=== PATIENT | male | born 1960 | race Caucasian/White ===

== ENCOUNTER 2019-06-29 13:58 | Inpatient (IN) | payer MEDICAID ==
--- NOTE | 2019-06-29 14:01 | ED Physician Documentation ---
PD HPI FOCAL NEURO - Stated complaint Stated Complaint: POSS STROKE - History obtained from History obtained from: Patient - History of Present Illness Timing - onset: How many hours ago (He works as a lead painter and reportedly his brother who works with him noted him to have a facial droopiness and drooling from the left side of his face onset while at work. It was just within the last hour or so. The patient states he felt okay this morning. He did not notice any weakness in his arm or legs. There is no report from his brother of confusion or such.), Today Timing - duration: Hours (1) Timing - details: Abrupt onset Weakness: Face, Left. No: Arm, Leg Numbness: No: Face, Arm, Leg Associated symptoms: No: Headache, Nausea / vomiting, Fall, Head injury Contributing factors: negative: Anticoagulated Baseline status: positive: A&OX3, ambulatory, indep Similar symptoms before: Has not had sx before Review of Systems Constitutional: denies: Fever, Chills Nose: denies: Rhinorrhea / runny nose, Congestion Throat: denies: Sore throat Cardiac: denies: Chest pain / pressure Respiratory: denies: Cough GI: denies: Abdominal Pain, Nausea, Vomiting Neurologic: reports: Focal weakness (just left face). denies: Generalized weakness, Numbness, Near syncope, Confused PD PAST MEDICAL HISTORY - Past Medical History Cardiovascular: None Respiratory: None Neuro: None Endocrine/Autoimmune: None - Allergies Allergies/Adverse Reactions: Allergies Allergy/AdvReac Type Severity Reaction Status Date / Time No Known Drug Allergies Allergy Verified 06/29/19 14:24 PD ED PE NORMAL - Vitals Vital signs reviewed: Yes - General General: Alert and oriented X 3, No acute distress (Seems to have deviated gaze to the right but is able to look full range of motion when following my finger. He denies any visual loss. He is able to answer questions appropriately and appears comfortable. There is a mild left facial droopiness noted on the corner of the mouth. I do not notice that around the eye nor the forehead at this time.), Well developed/nourished - HEENT HEENT: Pharynx benign - Neck Neck: Supple, no meningeal sign, No adenopathy, No bruit - Cardiac Cardiac: RRR, No murmur - Respiratory Respiratory: Clear bilaterally - Derm Derm: Normal color, Warm and dry - Extremities Extremities: No tenderness to palpate, Normal ROM s pain, No calf tenderness / cord, Other (1+ edema in both legs) - Neuro Neuro: Alert and oriented X 3, No sensory deficit, Normal speech Eye Opening: Spontaneous Motor: Obeys Commands Verbal: Oriented GCS Score: 15 - Psych Psych: No: Normal affect (somewhat flat) NIHSS - Level of Consciousness Level of consciousness: (0) Alert, Keenly responsive LOC Questions: (0) Answers both Q's correct LOC Commands: (0) Performs both correctly - Gaze Best Gaze: (0) Normal - Visual Visual: (0) No loss - Facial Palsy Facial Palsy: (1) Minor paralysis (left face mild droop) - Motor Arms (both separate) Motor Arm (right): (0) No drift Motor Arm (left): (0) No drift - Motor Legs (both separate) Motor Leg (right): (0) No drift Motor Leg (left): (0) No drift - Limb Ataxia Limb Ataxia: (0) Absent - Sensory Sensory: (0) Normal - Best Language Best Language: (0) No aphasia - Dysarthria Dysarthria: (0) Normal - Extinction and Inattention (formally neg Extinction and inattention: (1) Visual,tactile,auditory,spatial, or personal inattention (rested gaze to the right; but can look past midline to left) - Total Score/Results Total Score/Result: 2 Results - Vitals Vitals: Vital Signs - 24 hr 06/29/19 06/29/19 06/29/19 14:14 14:49 15:00 Temperature 36.8 C Heart Rate 92 92 85 Respiratory 16 18 26 H Rate Blood Pressure 183/91 H 166/74 H 175/80 H O2 Saturation 98 93 93 06/29/19 06/29/19 15:33 16:03 Temperature 36.9 C Heart Rate 90 88 Respiratory 14 16 Rate Blood Pressure 157/87 H 167/78 H O2 Saturation 98 93 Oxygen O2 Source Room air - Labs Labs: Laboratory Tests 06/29/19 06/29/19 06/29/19 14:10 14:10 14:10 WBC 8.3 RBC 5.05 Hgb 15.9 Hct 49.2 MCV 97.4 H MCH 31.5 H MCHC 32.3 RDW 14.7 Plt Count 180 MPV 9.9 Neut # (Auto) 5.7 Lymph # (Auto) 1.7 Morgan # (Auto) 0.7 Eos # (Auto) 0.1 Baso # (Auto) 0.1 Absolute Nucleated RBC 0.00 Nucleated RBC % 0.0 PT INR APTT Sodium 133 L Potassium 4.4 Chloride 96 L Carbon Dioxide 27 Anion Gap 10.0 BUN 18 Creatinine 1.0 Estimated GFR (MDRD) 77 L Glucose 233 H POC Whole Bld Glucose Calcium 9.1 Total Bilirubin 1.1 H AST 31 ALT 28 Alkaline Phosphatase 106 Total Protein 8.5 H Albumin 3.9 Globulin 4.6 H Albumin/Globulin Ratio 0.8 L Lipase 28 Ethyl Alcohol < 5.0 06/29/19 06/29/19 14:19 14:57 WBC RBC Hgb Hct MCV MCH MCHC RDW Plt Count MPV Neut # (Auto) Lymph # (Auto) Morgan # (Auto) Eos # (Auto) Baso # (Auto) Absolute Nucleated RBC Nucleated RBC % PT 12.2 INR 1.1 APTT 29.4 Sodium Potassium Chloride Carbon Dioxide Anion Gap BUN Creatinine Estimated GFR (MDRD) Glucose POC Whole Bld Glucose 217 H Calcium Total Bilirubin AST ALT Alkaline Phosphatase Total Protein Albumin Globulin Albumin/Globulin Ratio Lipase Ethyl Alcohol - Rads (name of study) head CT Radiology: Prelim report reviewed, Discussed with rads (No acute findings), See rad report neck and head angio Radiology: Prelim report reviewed (Occlusion at the right internal carotid with revascularization distally.), Discussed with rads (I talked with [place] stroke neurology who consulted with the interventional neurovascular specialist and reviewed the imaging. They are feeling was this was a chronic occlusion with collateral flow and did not meet acute intervention. Their concern would still be small distal occlusion and so stroke evaluation is still warranted but no acute lytic or endovascular intervention.), See rad report PD MEDICAL DECISION MAKING - ED course Complexity details: considered differential (Just facial droop without apparent forehead or mabel-orbital involvement. No arm or leg weakness. Does not sound hemispheric per se but concern for small vessel occlusion. I cannot clinically say looks like Elizabeth's palsy at this point in the timing onset seems more acute. We will treated as possible stroke with work-up that way.), d/w patient, d/w financial management consultant (Talked with stroke neurology who felt the patient did not warrant lytic intervention based on his degree of symptoms as the benefit would not substantiate potential harm or risk of harm. 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 This would not be approached surgically after he consulted with some of the interventional personnel. He suggested evaluation for small vessel injury related to breakoff from the chronic occlusion. Also started him on aspirin and statin therapy.) Departure - Departure Disposition: 66 [facility] DC/Xfer Clinical Impression: Facial droop CVA (cerebral vascular accident) Qualifiers: CVA mechanism: other Qualified Code(s): I63.89 - Other cerebral infarction Condition: Stable Record reviewed to determine appropriate education?: Yes
[2019-06-29 14:20] LABS: BASOPHILS # (AUTO) 0.1 10^3/uL (0.0-0.1); BASOPHILS % (AUTO) 0.8 %; EOSINOPHILS # (AUTO) 0.1 10^3/uL (0.0-0.7); EOSINOPHILS % (AUTO) 1.7 %; HGB - HEMOGLOBIN 15.9 g/dL (14.0-18.0); LYMPHOCYTES # (AUTO) 1.7 10^3/uL (1.5-3.5); LYMPHOCYTES % (AUTO) 19.8 %; MEAN CORPUSCULAR HEMOGLOBIN 31.5 pg (27.0-31.0); MEAN CORPUSCULAR HGB CONC 32.3 g/dL (32.0-36.0); MEAN CORPUSCULAR VOLUME 97.4 fL (80.0-94.0); MEAN PLATELET VOLUME 9.9 fL (7.4-11.4); MONOCYTES # (AUTO) 0.7 10^3/uL (0.0-1.0); MONOCYTES % (AUTO) 8.9 %; NEUTROPHILS # (AUTO) 5.7 10^3/uL (1.5-6.6); NEUTROPHILS % (AUTO) 68.3 %; PLT - PLATELET COUNT 180 10^3/uL (130-450); RED BLOOD COUNT 5.05 10^6/uL (4.70-6.10); RED CELL DISTRIBUTION WIDTH 14.7 % (12.0-15.0); WHITE BLOOD COUNT 8.3 x10^3/uL (4.8-10.8)
--- NOTE | 2019-06-29 14:23 | CT Report ---
Reason: Stroke Procedure Date: 06/29/2019 Accession Number: [id number] / [id number] Procedure: CT - HEAD WO CPT Code: Final Report FULL RESULT: EXAM: CT HEAD EXAM DATE: 06/29/2019 02:07 PM. CLINICAL HISTORY: Left facial droop, right gaze, concern for infarct. COMPARISON: None. TECHNIQUE: Multiaxial CT images were obtained from the foramen magnum to the vertex. Reformats: Sagittal and coronal. IV contrast: None. In accordance with CT protocol optimization, one or more of the following dose reduction techniques were utilized for this exam: automated exposure control, adjustment of mA and/or KV based on patient size, or use of iterative reconstructive technique. FINDINGS: Parenchyma: No intraparenchymal hemorrhage. No evidence of mass, midline shift, or CT findings of infarction. Ingram-white differentiation is distinct. Extraaxial Spaces: Normal for age. No subdural or epidural collections identified. Ventricles: Normal in size and position. Sinuses and Orbits: Imaged paranasal sinuses, orbits, and mastoids show no significant abnormality. Bones: No evidence of fracture or calvarial defect. Other: None. IMPRESSION: Head CT within normal limits for age. No acute intracranial hemorrhage or clear CT evidence for infarct at this time. Brain MRI for increased sensitivity could be considered. [facility] The critical test notification system was initiated by Dr. Temi Mcfarland at 02:16 PM on 06/29/2019. The above critical test findings were discussed with Lopez Cornejo by Dr. Temi Mcfarland at 02:21 PM on 06/29/2019.
[2019-06-29] MEDS ORDERED: SODIUM CHLORIDE 0.9% 1,000 ML IV ONE (14:24)
[2019-06-29] MEDS ORDERED: IOVERSOL 320 100 ML VIAL IVP ONE ×2 (14:27→14:51)
[2019-06-29 14:33] LABS: ALBUMIN 3.9 g/dL (3.2-5.5); ALBUMIN/GLOBULIN RATIO 0.8 (1.0-2.2); BILIRUBIN,TOTAL 1.1 mg/dL (0.2-1.0); CALCIUM 9.1 mg/dL (8.5-10.3); TOTAL PROTEIN 8.5 g/dL (6.7-8.2)
[2019-06-29] MEDS ORDERED: ATORVASTATIN 10 MG TABLET PO STA (15:02)
[2019-06-29] MEDS ORDERED: ASPIRIN CHEW 81 MG TABLET PO STA (15:02)
[2019-06-29 15:09] LABS: INR 1.1 (0.8-1.2); PT - PROTHROMBIN TIME 12.2 secs (9.9-12.6)
[2019-06-29 15:16] LABS: PARTIAL THROMBOPLASTIN TIME 29.4 secs (24.9-33.3)
--- NOTE | 2019-06-29 15:30 | CT Report ---
Reason: L sided facial droop, L neck pain Procedure Date: 06/29/2019 Accession Number: [id number] / [id number] Procedure: CT - ANGIO NECK W CPT Code: Final Report FULL RESULT: CT ANGIOGRAM NECK INDICATION: 58-year-old male. Left facial droop. Left neck pain. TECHNIQUE: 80 cc of Optiray 320 contrast were injected at a rapid rate through a large bore, right antecubital intravenous catheter. The neck was scanned helically during arterial phase. The data was reconstructed into 0.5 mm axial images. In addition, MIP reconstructions have been generated in multiple projections to allow better assessment of the extracranial carotid and vertebral arteries. Significant arterial stenoses will be assessed using NASCET type measurements when possible. In accordance with CT protocol optimization, one or more of the following dose reduction techniques were utilized for this exam: automated exposure control, adjustment of mA and/or KV based on patient size, or use of iterative reconstructive technique. COMPARISON: None. FINDINGS: There is normal branching of the aortic arch. There is calcified plaque at the origin of the left subclavian artery without significant associated stenosis. The first order, supra-aortic arteries appear widely patent. Right carotid artery: There is extensive beam-hardening artifact from dense contrast in the right subclavian vein that partially obscures the proximal common carotid artery. The mid to distal common carotid artery is patent. There is partially calcified plaque at the carotid bifurcation. There is little intraluminal contrast in the carotid bulb. There is absence of intraluminal contrast at the junction between the distal bulb and the proximal cervical ICA, extending over a distance of roughly 5 mm in the craniocaudad plane. However, there is a small amount of intraluminal contrast more distally in the ICA, to at least the distal cervical segments (see images 79 through 82 of series #5). There is no apparent intraluminal contrast in the ascending or horizontal petrous segments of the right ICA. A small amount of intraluminal contrast is seen in small caliber lumen for the cavernous segments, however, this is probably filling in a retrograde fashion. Left carotid artery: There is partially calcified plaque at the carotid bifurcation, extending into the carotid bulb. There is associated narrowing in the carotid bulb. At the level of maximal narrowing the lumen appears to be reduced to about 3 mm AP, compared to about 4.5 mm more distally. This is consistent with a 33.3% NASCET type stenosis. The extra cranial ICA is otherwise unremarkable. There is calcified plaque at the origin for the external carotid artery without associated, hemodynamically significant stenosis. Right vertebral artery: Patent at origin. A short segment of the proximal V1 segment is partially obscured due to beam-hardening artifact from dense contrast in adjacent structure. The mid and distal V1 segment are patent. However, the distal V1 and the proximal V2 segment are significantly smaller than the distal V2 segment. For example at the C5 level the lumen measures about 2.7 mm transverse, compared to about 4.7 mm at the C3-C4 level. The distal V2 and the V3 segments are robust. The etiology of the narrowing in the distal V1 and the proximal V2 segments is uncertain. There is some calcified plaque (for example see image 210 of series #2). No obvious intimal flap is demonstrated to suggest recent dissection. 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 There are appropriately small left-sided transverse foramina. The origin/proximal V1 segment are not well seen (see image 116 of series #5) this may be technical, however, the possibility of hemodynamically significant narrowing cannot be excluded. The V1 and V2 junction is poorly assessed, probably due to artifact. The V2 segment is otherwise relatively well seen and appears patent. The V3 segment is patent. IMPRESSION: 1. There is disease in the extracranial right ICA. There is little intraluminal contrast within the bulb. In addition, there is absence of intraluminal contrast extending over a 5 mm distance at the junction between the distal bulb and the proximal cervical ICA. However, there is a small amount of contrast in the lumen, more distally, extending to the junction between the distal cervical ICA and the ascending petrous segment. No intraluminal contrast is seen in the ascending or horizontal petrous segments. These findings make it difficult to differentiate between complete occlusion or high-grade, preocclusive stenosis. This could be further assessed with catheter angiography as clinically warranted. 2. Intracranially there is reconstitution of the right ICA through collaterals. There is filling of a small caliber, cavernous segment of the right ICA. It probably fills in a retrograde fashion. This would argue for complete occlusion of the right ICA, in the petrous segments rather than high-grade, preocclusive stenosis. 2. There is roughly 33.3% NASCET type narrowing in the left carotid bulb from atherosclerotic disease. 3. The dominant right vertebral artery is patent at its origin. Portions of the V1 segment are obscured due to beam-hardening artifact from dense contrast in adjacent venous structures. Noted is long segment, narrowing in the distal V1/proximal V2 segment of the right vertebral artery. The distal V2 and the V3 segment are robust (roughly 4.7 mm diameter). The etiology of this long segment narrowing is uncertain. Differential diagnostic considerations would include dissection or scarring from prior dissection. 4. The left vertebral artery is hypoplastic. Nonvisualization of the origin/proximal V1 segment may be technical, however, the possibility of hemodynamically significant stenosis cannot be excluded. The call report notification system was initiated by Dr. Cornelius Mas at 03:23 PM on 06/29/2019. The above call report findings were discussed with Dr.John Chawla by Dr. Cornelius Mas at 03:28 PM on 06/29/2019.
--- NOTE | 2019-06-29 15:38 | CT Report ---
Reason: L sided facial droop Procedure Date: 06/29/2019 Accession Number: [id number] / [id number] Procedure: CT - ANGIO HEAD W/WO CPT Code: Final Report FULL RESULT: EXAM: CT ANGIOGRAM HEAD AND POSTCONTRAST HEAD CT. INDICATION: 58-year-old male. Left facial droop. Left neck pain. TECHNIQUE: CT angiogram head. 80 cc of Optiray 320 contrast were injected at a rapid rate through a large bore, antecubital intravenous catheter. The head was scanned helically during arterial phase. The data was reconstructed into 0.5 mm axial images. In addition, MIP reconstructions have been generated in multiple projections to allow better assessment of the intracranial arteries. Postcontrast head CT Sequential 5 mm axial images were obtained through the brain, following the CT angiogram. COMPARISON: None. FINDINGS: CT angiogram head Anterior circulation: There is absence of intraluminal contrast in the petrous segments of the right ICA, suggesting occlusion. There is intraluminal contrast in the right carotid siphon, confirming reconstitution of the intracranial ICA through collaterals. An anterior communicating artery is demonstrated. However, the A1 segment of the right anterior cerebral artery is hypoplastic. There is a large, right posterior communicating artery, likely source of the main collateral supply to the right ICA. The supraclinoid right ICA appears widely patent throughout. There is a small amount of contrast in small caliber lumen for the anterior genuine of the right carotid siphon and the cavernous ICA. They almost certainly fill in a retrograde fashion. The M1 segment of the right MCA is widely patent. In addition, there appears to be good filling of the M2 branches without obvious occlusion or hemodynamically significant narrowing. The left ICA is widely patent throughout. There is a dominant left A1 segment. An anterior communicating artery is demonstrated. There appears to be good filling of the A2 and distal ELYSIA branches bilaterally. There is no obvious ELYSIA branch occlusion. The left MCA is unremarkable. No aneurysm is demonstrated and there is no obvious occlusion or hemodynamically significant stenosis affecting the M1 or M2 branches. Posterior circulation: The right vertebral artery is widely patent. There is good filling of the right PICA. The left vertebral artery is hypoplastic but patent. There is filling of a small caliber left PICA. No aneurysm is seen at either PICA origin. The basilar artery, the superior cerebellar arteries and the main branches of the posterior cerebral arteries appear widely patent. There are patent posterior communicating arteries bilaterally. No aneurysms are identified arising from the basilar artery trunk or apex. Postcontrast head CT No enhancing space-occupying mass lesion is demonstrated. There appears to be normal intravascular contrast enhancement in the dural venous sinuses and deep venous structures. IMPRESSION: CT angiogram head 1. Absence of intraluminal contrast in the petrous segment of the right ICA probably relates to occlusion, rather than slow flow secondary to high-grade stenosis. 2. There is reconstitution of the intracranial right ICA by means of intracranial collaterals (see above). 3. The A1 segment of the right anterior cerebral artery is hypoplastic. However, there is a robust left A1 segment. An anterior communicating artery is demonstrated. There appears to be good filling of the A2 and distal ELYSIA branches bilaterally. 4. Main branches of the right MCA appear widely patent without obvious pathology in any of the 3, M2 branches at the trifurcation. 5. No significant pathology is identified affecting main arteries in the left ICA circulation or the vertebrobasilar circulation. Postcontrast head CT No enhancing space-occupying mass lesion is demonstrated. A preliminary report for this examination was called to Dr. Christopher Chawla, following preliminary assessment on 06/29/2019 at 1525 hours.
[2019-06-29] MEDS ORDERED: SODIUM CHLORIDE FLUSH 0.9% 10 ML SYRINGE IVP PRN (16:26)
[2019-06-29] MEDS ORDERED: ONDANSETRON 4 MG/2 ML VIAL IVP PRN (16:26)
[2019-06-29] MEDS ORDERED: ZOLPIDEM 5 MG TABLET PO PRN (16:26)
[2019-06-29] MEDS ORDERED: ACETAMINOPHEN 325 MG TABLET PO PRN (16:26)
[2019-06-29] MEDS ORDERED: hydrALAZINE INJ 20 MG/ML VIAL IVP PRN ×2 (16:42→21:11)
--- NOTE | 2019-06-29 16:50 | HISTORY & PHYSICAL EXAMINATION ---
Chief Complaint - Chief Complaint Chief Complaint: left side facial drooping History of Present Illness - Admitted From Admitted From:: ER - History of Present Illness HPI Comment/Other: This is a 58-yrs old male without significant medical history, present ER complain of left facial drooping. pt brought in by his brother for concerns of a stroke. pt works as a commercial painter. His brother who works with him noted pt to have a left facial droopiness and drooling from the left side of his face while they were at work. It happened around 1345. The patient report he felt fine at this morning. He report he did not notice any weakness in his bilateral arm or legs. pt denies vision change, eye pain, headache, neck pain. He denies fever, chill, chest pain, shortness of breathing. ER provider did CT of head and CTA of head and neck. CT of head was unremarkable. 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 The dominant right vertebral artery is patent at its origin, but the distal V2 and V3 segment narrowing is uncertain. differential diagnostic considerations would include dissection or scarring from prior dissection. ER provider did consult with neurologist. The neurologist felt patient did not warrant lytic intervention based on his degree of symptoms as the benefit would not substantiate potential harm or risk of harm. Also that would not be surgically approached after the neurologist consulted with some of the intervention personnel.The neurologist suggested evaluation for small vessel injury related to break off from the chronic occlusion. The neurologist also recommended pt can be started on aspirin and statin therapy. pt is admitted at medical floor for further evaluation and treatment. History - Past Medical History Cardiovascular: reports: None Respiratory: reports: None Neuro: reports: None Endocrine/Autoimmune: reports: None Meds/Allgy - Allergies Allergies/Adverse Reactions: Allergies Allergy/AdvReac Type Severity Reaction Status Date / Time No Known Drug Allergies Allergy Verified 06/29/19 14:24 Exam - Vital Signs Vital Signs: Vital Signs x48h Temp Pulse Resp BP Pulse Ox 06/29/19 16:03 36.9 C 88 16 167/78 H 93 06/29/19 15:33 90 14 157/87 H 98 06/29/19 15:00 85 26 H 175/80 H 93 06/29/19 14:49 92 18 166/74 H 93 06/29/19 14:14 36.8 C 92 16 183/91 H 98 Conclusion/Plan - Problem List (1) CVA (cerebral vascular accident) Conclusion/Plan: pt present left facial drooping without unilateral extremities weakness or other focal neurological deficit. pt report his speech as his baseline. CT of head was unremarkable. 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 The dominant right vertebral artery is patent at its origin, but the distal V2 and V3 segment narrowing is uncertain. differential diagnostic considerations would include dissection or scarring from prior dissection. pt denies neck pain or headache. clinically pt showe left facial drooping without other focal neurological deficits. neurologist was consulted for above finding, recommend pt would be treated with small vessel injury related to break off from the chronic occlusion and start on Aspirin and statin therapy. differential diagnosis could be castillo palsy. order MRI of brain and ECHO, lipid panel ER already started Aspirin, continue aspirin and statin per neurologist's recommendation start on PT/OT Qualifiers: CVA mechanism: other Qualified Code(s): I63.89 - Other cerebral infarction (2) Facial droop Conclusion/Plan: pt's left facial drooping is almost resolved when I examine pt. pt did have left eyebrow sagging but pt has no difficult to close his left eye. pt does not present other focal neurological deficit. ER provider consult with neurologist, recommend pt for inpt, and evaluation for small vessel injury related to break off from the chronic occlusion. The differential diagnosis could be castillo palsy. pt denies vision change, eye pain, headache, neck pain order MRI of brain per recommendation, ER started on Aspirin, order statin, lipid panel test, PT/OT evaluation. (3) HTN (hypertension) Conclusion/Plan: pt has no medical hx. now pt was found to have HTN. start hydralazine PRN . continue vital monitor (4) Hyperglycemia Conclusion/Plan: pt has glucose at 233, pt denies hx of diabetes. pt has risk of obesity. will check A1C. If A1C is above 6.7, it is likely pt has new diagnosis of DM2, then we would start on insulin therapy, d/c home with Metformin first, and followup his PCP for further management. (5) Hyponatremia Conclusion/Plan: Na is 133, slight lower than normal, it is likely form hypovelmic hyponatremia start on IVF of NS, lab monitor (6) Current smoker Conclusion/Plan: pt report he smoke cigarette daily one pack per day. advise pt quit smoking. he ask Nicotine Patch (7) Wheezing Conclusion/Plan: pt present bilateral wheezing but he denies fever, chill or shortness of breath. pt's WBC is normal. pt denies hx of asthma or COPD. but pt is a current cigarette smoker. order CXR, start albuterol and duoneb. depending on CXR, pt might need Covid 19 test or pt might need start on lower dosage of steroid. (8) Obese Conclusion/Plan: pt's BMI is 40.2, advise pt loss of his weight, he understood. - Lab Results Fish Bones: 06/29/19 14:10 06/29/19 14:10 Core Measures - Anticipated LOS I expect patient to be DC'd or transferred within 96 hours.: Yes - DVT/VTE - Prophylaxis VTE/DVT Device ordered at admit?: Yes VTE/DVT Prophylaxis med ordered at admit?: Yes
[2019-06-29 17:15] LABS: HB2 TOTAL 16.5 g/dL; HEMOGLOBIN A1C 0.96 g/dL; HEMOGLOBIN A1C % 7.5 % (4.6-6.2)
[2019-06-29] MEDS ORDERED: IPRATROPIUM/ALBUTEROL 3 ML NEB INH STA (18:17)
[2019-06-29] MEDS ORDERED: IPRATROPIUM/ALBUTEROL 3 ML NEB INH PRN (18:17)
[2019-06-29] MEDS ORDERED: ALBUTEROL NEB 2.5 MG/3 ML INH PRN (18:17)
[2019-06-29] MEDS ORDERED: ALBUTEROL NEB 2.5 MG/3 ML INH ONE (18:17)
[2019-06-29] MEDS: SODIUM CHLORIDE 0.9% 1,000 ML IV SCH (19:06)
[2019-06-29] MEDS: SODIUM CHLORIDE FLUSH 0.9% 10 ML SYRINGE IVP SCH (19:08)
[2019-06-29] MEDS: NICOTINE 21 MG PATCH TOP SCH (19:08)
--- NOTE | 2019-06-29 19:08 | MRI Report ---
Reason: stroke Procedure Date: 06/29/2019 Accession Number: [id number] / [id number] Procedure: MRI - Brain W/O CPT Code: Final Report FULL RESULT: EXAM: MRI BRAIN WITHOUT CONTRAST EXAM DATE: 06/29/2019 05:56 PM. CLINICAL HISTORY: Clinically suspected acute stroke. Left facial droop and drooling. COMPARISON: No prior brain MRI. TECHNIQUE: Multiplanar, multisequence T1-weighted and fluid-sensitive MR sequences of the brain were performed. Sequences optimized for routine evaluation. Other: None. IV Contrast: None. FINDINGS: Brain Volume: Normal for age. Parenchyma/Dura: Rounded region of right frontal lobe restricted diffusion with minimal edema consistent with acute ischemic infarct measuring about 3 x 3.5 cm. No associated hemorrhage. 7 mm T2 hyperintensity with mild diffusion hyperintensity but no diffusion restriction in the right occipital deep white matter likely representing subacute to late subacute post ischemic signal abnormality. 8 mm focus of peripheral probable restricted diffusion in the right posterior parietal lobe with mild edema consistent with acute to subacute ischemic infarct. No significant mass effect. No midline shift. No acute hemorrhage. Mild multifocal nonspecific chronic appearing white matter T2 hyperintense signal changes, likely attributable to aging and mild chronic microangiopathy. Ventricles/Cisterns: No hydrocephalus. No abnormal extra-axial fluid collection or hemorrhage. Orbits: Symmetric and unremarkable. Sella Turcica: The pituitary gland, cavernous sinuses, suprasellar cistern and optic chiasm are unremarkable. IAC: Grossly symmetric and unremarkable allowing for the inherent limitations of noncontrast imaging technique. Vasculature: Abnormal. The right ICA skull base flow void is absent suggestive of arterial occlusion. Sinuses: Multifocal paranasal sinus mucosal thickening, especially of sphenoid and ethmoid. Bones: No focal pathologic appearing marrow signal changes. Other: None. IMPRESSION: 1. Diffusion abnormalities on the right consistent with multiple infarcts, potentially of different ages, the largest involves the right frontal lobe without associated hemorrhage. 2. Mild chronic generalized age-related changes. 3. Probable occlusion of the right ICA at the skull base. 4. Multifocal paranasal sinus mucosal thickening. RADIA The call report notification system was initiated by Dr. Edvin Osuna at 07:01 PM on 06/29/2019. The above call report findings were discussed with [place] by Dr. Edvin Osuna at 07:04 PM on 06/29/2019.
[2019-06-29 20:15] LABS: MUDS CUTOFF CONCENTRATIONS CUTOFF CONC BELOW:
[2019-06-29 20:26] LABS: AMPHETAMINE SCREEN,URINE NEGATIVE (NEGATIVE); BENZODIAZEPINES SCREEN, URINE NEGATIVE (NEGATIVE); COCAINE SCREEN URINE NEGATIVE (NEGATIVE); METHADONE SCREEN, URINE NEGATIVE (NEGATIVE); METHAMPHETAMINES SCREEN, URINE NEGATIVE (NEGATIVE); OPIATE SCREEN, URINE NEGATIVE (NEGATIVE); OXYCODONE SCREEN, URINE NEGATIVE (NEGATIVE); PROPOXYPHENE SCREEN, URINE NEGATIVE (NEGATIVE); TRICYCLIC ANTIDEPRESSANT,URINE NEGATIVE (NEGATIVE)
[2019-06-29] MEDS ORDERED: ATORVASTATIN 40 MG TABLET PO SCH (21:00)
--- NOTE | 2019-06-29 21:15 | XRAY Report ---
Reason: SOB Procedure Date: 06/29/2019 Accession Number: [id number] / [id number] Procedure: XR - Chest 1 View X-Ray CPT Code: 25707 Final Report FULL RESULT: EXAM: CHEST RADIOGRAPHY EXAM DATE: 06/29/2019 06:43 PM. CLINICAL HISTORY: SOB. COMPARISON: None. TECHNIQUE: 1 view. FINDINGS: Lungs/Pleura: No dense consolidation. No large effusion or pneumothorax. No pulmonary edema. Mediastinum: Heart and mediastinal contours are unremarkable. Other: None. IMPRESSION: No acute radiographic pulmonary abnormalities. RADIA
[2019-06-29] MEDS: INSULIN ASPART 300 UNIT/3 ML PEN SUBQ SCH (22:21)
[2019-06-29] MEDS: FAMOTIDINE 20 MG TABLET PO SCH (22:21)
[2019-06-30] MEDS ORDERED: BENZOCAINE/MENTHOL LOZENGE MM PRN (00:20)
[2019-06-30] MEDS: SODIUM CHLORIDE FLUSH 0.9% 10 ML SYRINGE IVP SCH ×2 (00:38→08:29)
[2019-06-30 05:10] LABS: BASOPHILS % (AUTO) 0.4 %; EOSINOPHILS # (AUTO) 0.2 10^3/uL (0.0-0.7); EOSINOPHILS % (AUTO) 2.4 %; HGB - HEMOGLOBIN 14.3 g/dL (14.0-18.0); LYMPHOCYTES # (AUTO) 1.8 10^3/uL (1.5-3.5); LYMPHOCYTES % (AUTO) 23.7 %; MEAN CORPUSCULAR HEMOGLOBIN 31.2 pg (27.0-31.0); MEAN CORPUSCULAR VOLUME 97.6 fL (80.0-94.0); MEAN PLATELET VOLUME 10.1 fL (7.4-11.4); MONOCYTES # (AUTO) 0.7 10^3/uL (0.0-1.0); MONOCYTES % (AUTO) 8.7 %; NEUTROPHILS # (AUTO) 4.9 10^3/uL (1.5-6.6); NEUTROPHILS % (AUTO) 64.5 %; PLT - PLATELET COUNT 154 10^3/uL (130-450); RED BLOOD COUNT 4.58 10^6/uL (4.70-6.10); RED CELL DISTRIBUTION WIDTH 15.1 % (12.0-15.0); WHITE BLOOD COUNT 7.6 x10^3/uL (4.8-10.8)
[2019-06-30 05:24] LABS: ALBUMIN 3.3 g/dL (3.2-5.5); ALBUMIN/GLOBULIN RATIO 0.8 (1.0-2.2); ALKALINE PHOSPHATASE 70 IU/L (42-121); ALT ALANINE AMINOTRANSFERASE 26 IU/L (10-60); AST ASPARTATE AMINOTRANSFERASE 22 IU/L (10-42); BILIRUBIN,TOTAL 0.7 mg/dL (0.2-1.0); BUN - BLOOD UREA NITROGEN 16 mg/dL (6-20); CALCIUM 8.5 mg/dL (8.5-10.3); CARBON DIOXIDE - CO2 27 mmol/L (21-32); CHLORIDE 99 mmol/L (101-111); CHOL/HDL RATIO 2.6 (<5.0); CHOLESTEROL 143 mg/dL; CREATININE 0.6 mg/dL (0.6-1.2); GLUCOSE 168 mg/dL (70-100); HDL CHOLESTEROL 55 mg/dL; LDL CHOLESTEROL,CALCULATED 72 mg/dL; LDL/HDL RATIO 1.3 (<3.6); MAGNESIUM 1.8 mg/dL (1.7-2.8); SODIUM 135 mmol/L (135-145); TOTAL PROTEIN 7.4 g/dL (6.7-8.2); VLDL CHOLESTEROL 16 mg/dL
[2019-06-30] MEDS: SODIUM CHLORIDE 0.9% 1,000 ML IV SCH (07:05)
[2019-06-30] MEDS ORDERED: INSULIN GLARGINE 300 UNIT/3 ML PEN SUBQ SCH (08:00)
[2019-06-30] MEDS ORDERED: ASPIRIN 325 MG TABLET PO SCH (08:00)
[2019-06-30] MEDS: NICOTINE 21 MG PATCH TOP SCH (08:29)
[2019-06-30] MEDS: FAMOTIDINE 20 MG TABLET PO SCH (08:29)
[2019-06-30] MEDS: INSULIN ASPART 300 UNIT/3 ML PEN SUBQ SCH ×2 (08:44→12:12)
[2019-06-30] MEDS ORDERED: CLOPIDOGREL 75 MG TABLET PO SCH (09:00)
[2019-06-30] MEDS ORDERED: ENOXAPARIN 40 MG/0.4 ML SYRINGE SUBQ SCH (09:00)
[2019-06-30] MEDS ORDERED: amLODIPine 5 MG TABLET PO SCH (09:00)
[2019-06-30] MEDS ORDERED: ASPIRIN CHEW 81 MG TABLET PO SCH (09:00)
[2019-06-30] MEDS ORDERED: carvediloL 3.125 MG TABLET PO SCH (10:00)
[2019-06-30] MEDS ORDERED: PRENATAL VITAMIN TABLET PO SCH (10:00)
[2019-06-30] MEDS ORDERED: lisinopriL 5 MG TABLET PO SCH (10:00)
[2019-06-30] MEDS ORDERED: THIAMINE 100 MG TABLET PO SCH (10:00)
--- NOTE | 2019-06-30 11:55 | PHARMACY PROGRESS NOTE ---
- Best Possible Medication History Admit Date and Time: 06/29/19 1626 Processed by: Pharmacy Medication History completed: Yes Patient Interview: Pt interview ONLY source As the person ultimately responsible for medication therapy, providers are able to order a medication from an existing home medication list in [facility] via the "Reconcile Routine" prior to Confirmation of that medication by operations support manager. Such practice is discouraged except when the physician, in their clinical judgment, deems that a medical need exists for a medication without regard to previous use.
[2019-06-30] MEDS ORDERED: lisinopriL 20 MG TABLET PO SCH (12:00)
[2019-06-30] MEDS ORDERED: hydrALAZINE INJ 20 MG/ML VIAL IVP PRN (13:15)
--- NOTE | 2019-06-30 13:37 | Discharge Plan ---
Discharge Plan Problem Reviewed?: Yes Disposition: Home, Self Care Condition: Poor Prescriptions: Albuterol Sulf [Ventolin Hfa Inhaler] 1 - 2 puffs INH Q4HR PRN #1 inhaler PRN Reason: Shortness Of Air/Wheezing Aspirin [Octavio] 325 mg PO DAILYWM #15 tablet Atorvastatin [Lipitor] 80 mg PO QPM #30 tablet carvediloL [Coreg] 3.125 mg PO BID #30 tablet Lisinopril [Zestril] 20 mg PO DAILY #15 tablet metFORMIN [Glucophage] 500 mg PO BIDWM #30 tablet Vitamin [Trinatal Rx 1] 1 tab PO DAILYWM #15 tablet Thiamine [Vitamin B-1] 100 mg PO DAILY #15 tablet Diet: Diabetic Activity Restrictions: Activity as Tolerated Shower Restrictions: No (fall precaution) Instruction Topics: Atorvastatin tablets, Metformin tablets, Carvedilol tablets, Albuterol inhalation aerosol, Aspirin ASA chewable tablets, Lisinopril tablets, Hypertension Control, Heart Failure, Diabetes Resources, Diabetes Type 2 Coping, Stroke Sx, Stroke Taking Meds, COVID-19 [facility] Concerns: stroke, diabetes, diastolic heart failure, occlusion with reconstitution of carotid and scarring from prior dissection of vertebral artery. Plan of Treatment: you were found stroke, now you are stable without focal neurological deficits, meds Aspirin and Lipitor are prescribed for you. you were found to have new diabetes, meds Metformin is prescribed for pt. You were found to have diastolic heart failure and HTN, meds Lisinopril and Coreg are prescribed for pt. spinning room worker help you setup PCP. Advise you followup your PCP in one week, followup neurologist and vascular surgeon for your stroke, and chronic occlusion and possible prior dissection of Carotid and vertebral artery in 2-3 weeks. Care Goals: stabilization and improvement of your medical conditions Assessment: discussed with you about the care plan, you understood and will followup Additional Instructions or Follow Up instructions: You may followup your PCP in one week, followup neurologist and vascular surgeon in 2-3 weeks. Advise you quit cigarette smoking and alcohol. Should your symptoms return or worsen, you may present ER or call 911 for help. Follow-Up Care: [facility] - CHF Classes, Outpatient Rehab - PT, [facility] - Diabetes Ed No Smoking: If you smoke, Please STOP! Call for help.
--- NOTE | 2019-06-30 14:33 | DISCHARGE SUMMARY ---
Discharge Summary Admit Date: 06/29/19 Discharge Date: 06/30/19 Discharging Provider: Alex Hutton Condition at Discharge: Poor Discharge Disposition: 01 Home, Self Care Discharge Facility Name: home - DIAGNOSES Admission Diagnoses: (1) CVA (cerebral vascular accident) (2) Facial droop (3) HTN (hypertension) (4) Hyperglycemia (5) Hyponatremia (6) Current smoker (7) Wheezing (8) Obese Discharge Diagnoses with Status of Each Condition: (1) CVA (cerebral vascular accident) pt has no focal neurological deficits. pt is alert and oriented. pt had PT/OT evaluation and treatment. PT/OT recommended pt can be d/c. pt's MRI reveals pt has multiple infarcts in right brain. CTA of neck and brain reveals possible chronic occlusion on right carotid and prior dissection of right vertebrate artery. pt was consult by ER provider from neurologist and duct layer, and surgery is not approach at this time, and recommend to have Aspirin and State for his stroke. discussed all test results and care plan, d/c care plan with pt. pt state he understood and will followup. particleboard factory worker tried to help pt setting up for PCP. pt is prescribed Aspirin and Lipitor. pt is advised to followup PCP, neurologist, and vascular surgeon for his complicated right carotid and right vertebrate artery medical condition. Pt is living [facility]. pt is stable now. he state he will followup above specialities as out-pt (2) Facial droop resolved (3) HTN (hypertension) stable. pt is prescribed Lisinopril and Coreg (4) new diagnosis of DM2 pt was found to have hyperglycemia and A1C at 7.5. pt has not been diagnosis of diabetes before. pt was consulted by clinical nurse educator. pt is prescribed Metformin, and advise pt followup PCP to manage his diabetes. (5) Hyponatremia resolved (6) Current smoker advise pt quit smoking (7) Wheezing resolved. pt had breath treatment in hospital. pt is prescribed Albuterol PRN puff (8) Obese advise pt loss of his weight (9) hx of alcohol abuse advise pt quit his alcohol input (10)diastolic heart failure pt is now found to have diastolic heart failure in ECHO. pt is prescribed Lisinopril and Coreg. advise pt followup PCP, and lap winding machine operator as out-pt - HPI History of Present Illness: This is a 58-yrs old male with a PMH of current cigarette smoker, illicit drug abuse in the past, alcohol abuse, present ER complain of left facial drooping. pt brought in by his brother for concerns of a stroke. 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 It happened around 1345. The patient report he felt fine at this morning. He report he did not notice any weakness in his bilateral arm or legs. pt denies vision change, eye pain, headache, neck pain. He denies fever, chill, chest pain, shortness of breathing. ER provider did CT of head and CTA of head and neck. CT of head was unremarkable. 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 The dominant right vertebral artery is patent at its origin, but the distal V2 and V3 segment narrowing is uncertain. differential diagnostic considerations would include dissection or scarring from prior dissection. ER provider did consult with neurologist. The neurologist felt patient did not warrant lytic intervention based on his degree of symptoms as the benefit would not substantiate potential harm or risk of harm. Also that would not be surgically approached after the neurologist consulted with some of the intervention personnel.The neurologist suggested evaluation for small vessel injury related to break off from the chronic occlusion. The neurologist also recommended pt can be started on aspirin and statin therapy. pt is admitted at medical floor for further evaluation and treatment. - HOSPITAL COURSE Hospital Course: pt was admitted for left facial drooping. MRI reveal pt has multiple infarcts in right brain. CTA of neck and brain reveals possible chronic occlusion on right carotid and prior dissection of right vertebrate artery. pt was consulted by neurologist and duct layer by ER provider, surgery is not option. pt has no focal neurological deficits after treated in hospital. pt is alert and oriented. pt had PT/OT evaluation and treatment. PT/OT recommended pt can be d/c. ECHO reveals pt has moderate diastolic heart failure. pt was found to have diabetes at first time. The detail hospital course is as the below. (1) CVA (cerebral vascular accident) pt has no more focal neurological deficits. pt is alert and oriented. pt had PT/OT evaluation and treatment. PT/OT recommended pt can be d/c. pt's MRI reveals pt has multiple infarcts in right brain. CTA of neck and brain reveals possible chronic occlusion on right carotid and prior dissection of right vertebrate artery. pt was consult by ER provider from neurologist and duct layer, and surgery is not approach at this time, and recommend to have Aspirin and State for his stroke. discussed all test results and care plan, d/c care plan with pt. pt state he understood and will followup. particleboard factory worker tried to help pt setting up for PCP. pt is prescribed Aspirin and Lipitor. pt is advised to followup PCP, neurologist, and vascular surgeon for his complicated right carotid and right vertebrate artery medical condition. Pt is living [facility]. pt is stable now. he state he will followup above specialities as out-pt (2) Facial droop resolved (3) HTN (hypertension) stable. pt is prescribed Lisinopril and Coreg (4) new diagnosis of DM2 pt was found to have hyperglycemia and A1C at 7.5. pt has not been diagnosis of diabetes before. pt was consulted by clinical nurse educator. pt is prescribed Metformin, and advise pt followup PCP to manage his diabetes. (5) Hyponatremia resolved (6) Current smoker advise pt quit smoking (7) Wheezing resolved. pt had breath treatment in hospital. pt is prescribed Albuterol PRN puff (8) Obese advise pt loss of his weight (9) hx of alcohol abuse advise pt quit his alcohol input (10)diastolic heart failure pt is now found to have diastolic heart failure in ECHO. pt is prescribed Lisinopril and Coreg. advise pt followup PCP, and lap winding machine operator as out-pt - ALLERGIES Allergies/Adverse Reactions: Allergies Allergy/AdvReac Type Severity Reaction Status Date / Time No Known Drug Allergies Allergy Verified 06/29/19 14:24 - MEDICATIONS Home Medications: Ambulatory Orders Medication Instructions Recorded Confirmed Albuterol Sulf [Ventolin Hfa 1 - 2 puffs INH Q4HR PRN #1 inhaler 06/30/19 Inhaler] Aspirin [Octavio] 325 mg PO DAILYWM #15 tablet 06/30/19 Atorvastatin [Lipitor] 80 mg PO QPM #30 tablet 06/30/19 Lisinopril [Zestril] 20 mg PO DAILY #15 tablet 06/30/19 Vitamin [Trinatal Rx 1] 1 tab PO DAILYWM #15 tablet 06/30/19 Thiamine [Vitamin B-1] 100 mg PO DAILY #15 tablet 06/30/19 carvediloL [Coreg] 3.125 mg PO BID #30 tablet 06/30/19 metFORMIN [Glucophage] 500 mg PO BIDWM #30 tablet 06/30/19 - PHYSICAL EXAM AT DISCHARGE General Appearance: positive: No acute distress, Alert. negative: Lethargic Eyes Bilateral: positive: Normal inspection, PERRL, No lid inflammation ENT: positive: ENT inspection nml, Pharynx nml, No signs of dehydration. negative: Purulent nasal drainage Neck: positive: Nml inspection, Thyroid nml, No JVD, Trachea midline. negative: Thyromegaly, Lymphadenopathy (R), Lymphadenopathy (L), Stiff neck, Tracheal deviation Respiratory: positive: Chest non-tender, No respiratory distress. negative: Wheezes, Rales, Rhonchi Cardiovascular: positive: Regular rate & rhythm, No murmur, No gallop. negative: Irregularly irregular, Extrasystoles, Tachycardia, Bradycardia, JVD present, Systolic murmur, Diastolic murmur Peripheral Pulses: positive: 2+ Abdomen: positive: Non-tender, No organomegaly, Nml bowel sounds. negative: Tenderness, Guarding, Rebound Back: positive: Nml inspection. negative: CVA tenderness (R), CVA tenderness (L) Skin: positive: Color nml, No rash, Warm, Dry. negative: Cyanosis, Diaphoresis, Pallor Extremities: positive: Non-tender, Full ROM, Nml appearance. negative: Calf tenderness, Kaylie's sign/cords Neurologic/Psychiatric: positive: Oriented x3, Motor nml, Sensation nml, Mood/affect nml. negative: Weakness, Sensory loss, Facial droop, Slurred/abnml speech, Depressed mood/affect - LABS Result Diagrams: 06/30/19 04:10 06/30/19 04:10 - FOLLOW UP Follow Up: you were found stroke, now you are stable without focal neurological deficits, meds Aspirin and Lipitor are prescribed for you. you were found to have new diabetes, meds Metformin is prescribed for pt. You were found to have diastolic heart failure and HTN, meds Lisinopril and Coreg are prescribed for pt. particleboard factory worker help you setup PCP. Advise you followup your PCP in one week, followup neurologist and vascular surgeon for your stroke, and chronic occlusion and possible prior dissection of Carotid and vertebral artery in 2/3 weeks. You may followup your PCP in one week, followup neurologist and vascular surgeon in 2-3 weeks. Advise you quit cigarette smoking and alcohol. Should your symptoms return or worsen, you may present ER or call 911 for help. - TIME SPENT Time Spent in Discharge (Minutes): 40
[2019-06-30 15:54] VITALS: BP 133/80
== END 2019-06-30 16:00 | disposition home or self-care (01) | DRG 65 ==
LOC: ED 13:58 → MS3 15:29 → UNDOADMOB 15:29 → MS3 16:26
PROVIDERS: ADMIT Nurse Practitioner Gerontology; ATTEND Nurse Practitioner Gerontology
DX: I63.231 Cerebral infarction due to unspecified occlusion or stenosis of right carotid arteries (principal); E87.1 Hypo-osmolality and hyponatremia; Z68.41 Body mass index [BMI] 40.0-44.9, adult; I50.30 Unspecified diastolic (congestive) heart failure; R29.810 Facial weakness; I11.0 Hypertensive heart disease with heart failure; E11.65 Type 2 diabetes mellitus with hyperglycemia; F17.210 Nicotine dependence, cigarettes, uncomplicated; R06.2 Wheezing; E66.9 Obesity, unspecified; F10.10 Alcohol abuse, uncomplicated; R29.702 NIHSS score 2
CPT/HCPCS: 36415; 70496; 70498; 70551; 71045; 80053; 80061; 80306; 80320; 83036; 83690; 83735; 85025; 85610; 85730; 93005; 93306; 94640; 96360; 97161; 97165; 99284; 99285; A9270; G0378; J1650; J1815; Q9967; 70450; 83721